=== PATIENT | male | born 1950 | race African-American/Black ===

== ENCOUNTER 2022-10-27 08:05 | Inpatient (IN) | payer MEDICARE, MEDICAID ==
[~2022-10-27] VITALS: Ht 175.3 cm; Wt 93.6 kg
[~2022-10-27 08:05] MED LIST: APIX2.5T PO; DORZ10DR32 EACHEYE; ERGO1250; FOLI-43 MT; LATA5DRO EACHEYE; MAGN400C PO; METO25TA6 PO; MULT18TA PO; MYCO180T PO; NEPVIT PO; ONDA4TAB50 PO; PRED5TAB PO; SPIR25TA6 MT; TACR0.5C PO; THIA50TA12 PO
[2022-10-27 09:23] LABS: BASOPHILS % 0.4 % (0.0-2.0); EOSINOPHILS % 2.4 % (0.0-5.0); HEMATOCRIT. 41.2 % (42.0-52.0); HEMOGLOBIN. 13.6 g/dL (14.0-18.0); LYMPHOCYTES % 20.1 % (20.0-50.0); MEAN CORPUSCULAR VOLUME 97.1 fL (80.0-94.0); MEAN PLATELET VOLUME 11.4 fl (7.4-10.4); MONOCYTES % 10.4 % (2.0-8.0); NEUTROPHILS % 66.7 % (40.0-76.0); PLATELET 120 x1000/uL (130-400); RED BLOOD CELL COUNT 4.25 mill/uL (4.7-6.1); RED CELL DISTRIBUTION WIDTH 16.6 % (11.6-14.6)
[2022-10-27 09:42] LABS: CHLORIDE 119 mEq/L (98-107)
[2022-10-27] MEDS ORDERED: SODIUM CHLORIDE 0.45% 1,000 ML IV ONE (10:15)
[2022-10-27] MEDS ORDERED: ACETAMINOPHEN 325MG TABLET PO PRN ×2 (10:30)
[2022-10-27] MEDS ORDERED: MAGNESIUM/ALUMINUM HYDROXIDE/SIMETHICONE 30ML UDC PO PRN (10:30)
[2022-10-27] MEDS ORDERED: CLONIDINE 0.1MG TABLET PO PRN (10:30)
[2022-10-27] MEDS ORDERED: GUAIFENESIN 200MG/10ML SUGAR FREE UDC PO PRN (10:30)
[2022-10-27] MEDS ORDERED: HYDROCODONE/ACETAMINOPHEN 5/325MG TABLET PO PRN (10:30)
[2022-10-27] MEDS ORDERED: ENOXAPARIN 40MG/0.4ML SYR SUBCUT SCH (10:30)
[2022-10-27] MEDS: SODIUM CHLORIDE 0.45% 1,000 ML IV SCH ×2 (10:30→21:29)
[2022-10-27] MEDS ORDERED: ONDANSETRON HCL 4MG/2ML INJ IV PRN (10:30)
[2022-10-27] MEDS ORDERED: COLL30OI TP (10:44)
[2022-10-27] MEDS ORDERED: TACR1CAP PO (10:44)
[2022-10-27] MEDS ORDERED: METO100T16 PO (10:44)
[2022-10-27] MEDS ORDERED: TIMO15DR11 EACHEYE (10:44)
[2022-10-27] MEDS ORDERED: APIXABAN 2.5 MG TABLET PO SCH (11:00)
[2022-10-27 11:36] LABS: CLARITY URINE CLOUDY (CLEAR); COLOR URINE YELLOW (YELLOW); KETONES URINE NEGATIVE (NEGATIVE); LEUKOCYTE ESTERASE URINE 3+ (NEGATIVE); NITRITE URINE NEGATIVE (NEGATIVE); OCCULT BLOOD URINE TRACE (NEGATIVE); PH URINE 6.5 (4.5-8.0); PROTEIN URINE 1+ (NEGATIVE)
[2022-10-27] MEDS ORDERED: CEFTRIAXONE 1GM PREMIX 50 ML IV NR (11:45)
[2022-10-27 11:48] LABS: FOLIC ACID (FOLATE) SERUM >20 ng/mL ng/mL (>5.38); VITAMIN B12 SERUM 968 pg/mL (211-911)
[2022-10-27] MEDS: HYDRALAZINE 20MG/ML VIAL IV SCH ×2 (13:20→17:12)
[2022-10-27 13:36] LABS: PROSTRATE SPECIFIC AG TOTAL 0.16 ng/mL (0.0-4.0)
[2022-10-27 15:00] VITALS: BP 148/60
[2022-10-27 16:00] VITALS: BP 148/60
[2022-10-27] MEDS: MYCOPHENOLATE SODIUM 180 MG TABLET.DR PO SCH (17:11)
[2022-10-27] MEDS: PREDNISONE 5MG TABLET PO SCH (17:11)
[2022-10-27] MEDS: TACROLIMUS 1MG CAPSULE PO SCH (17:12)
[2022-10-27] MEDS: METOPROLOL TARTRATE 50MG TABLET PO SCH (17:12)
[2022-10-27 20:00] VITALS: BP 160/84
[2022-10-27] MEDS ORDERED: METOPROLOL TARTRATE 50MG TABLET PO SCH (21:00)
[2022-10-27] MEDS: FAMOTIDINE 20MG TABLET PO SCH (21:29)
[2022-10-27] MEDS ORDERED: MULT-622 MT (22:40)
[2022-10-27] MEDS ORDERED: TIMO5DRO17 EACHEYE (22:40)
[2022-10-27] MEDS ORDERED: AMIN30LI2 PO (22:40)
[2022-10-27] MEDS ORDERED: CLON0.1T PO (22:40)
[2022-10-28] MEDS: HYDRALAZINE 20MG/ML VIAL IV SCH ×2 (00:16→05:56)
[2022-10-28] MEDS: METOPROLOL TARTRATE 50MG TABLET PO SCH ×2 (00:16→08:59)
[2022-10-28 00:29] VITALS: BP 157/100
[2022-10-28 04:00] VITALS: BP 152/106
[2022-10-28 07:01] LABS: BASOPHILS % 0.3 % (0.0-2.0); EOSINOPHILS % 1.2 % (0.0-5.0); HEMATOCRIT. 38.2 % (42.0-52.0); HEMOGLOBIN. 12.5 g/dL (14.0-18.0); LYMPHOCYTES % 23.4 % (20.0-50.0); MEAN CORPUSCULAR HEMOGLOBIN 32.3 pg (28.0-32.0); MEAN PLATELET VOLUME 11.5 fl (7.4-10.4); MONOCYTES % 13.6 % (2.0-8.0); NEUTROPHILS % 61.5 % (40.0-76.0); PLATELET 121 x1000/uL (130-400); RED BLOOD CELL COUNT 3.86 mill/uL (4.7-6.1); RED CELL DISTRIBUTION WIDTH 16.6 % (11.6-14.6)
[2022-10-28 07:04] LABS: CHLORIDE 117 mEq/L (98-107)
[2022-10-28 08:00] VITALS: BP 178/91
[2022-10-28] MEDS: MYCOPHENOLATE SODIUM 180 MG TABLET.DR PO SCH ×2 (08:57→16:33)
[2022-10-28] MEDS: FOLIC ACID/VITAMIN B COMP W-C TABLET PO SCH (08:58)
[2022-10-28] MEDS: APIXABAN 2.5 MG TABLET PO SCH ×2 (08:58→16:33)
[2022-10-28] MEDS: TACROLIMUS 1MG CAPSULE PO SCH ×2 (08:58→16:35)
[2022-10-28] MEDS: TIMOLOL MALEATE 0.25% OPHTH DROPS 5ML EACHEYE SCH (08:59)
[2022-10-28] MEDS ORDERED: SPIRONOLACTONE 25MG TABLET PO SCH (09:00)
[2022-10-28] MEDS: PREDNISONE 5MG TABLET PO SCH (09:00)
[2022-10-28] MEDS ORDERED: METOPROLOL TARTRATE 50MG TABLET PO NR (11:16)
[2022-10-28 12:00] VITALS: BP 150/98
[2022-10-28] MEDS: CEFTRIAXONE 1,000 MG in DEXTROSE 5% WATER 50 ML IV SCH (12:03)
[2022-10-28 13:52] LABS: HEPATITIS B SURFACE ANTIGEN NEGATIVE
[2022-10-28 16:00] VITALS: BP 135/97
[2022-10-28] MEDS: SODIUM CHLORIDE 0.45% 1,000 ML IV SCH (16:32)
[2022-10-28] MEDS: CLONIDINE 0.1MG TABLET PO PRN (16:33)
[2022-10-28] MEDS ORDERED: NALOXONE HCL 0.4MG/ML VIAL IV PRN (18:45)
[2022-10-28 20:00] VITALS: BP 166/102
[2022-10-28] MEDS: FAMOTIDINE 20MG TABLET PO SCH (20:46)
[2022-10-28] MEDS: METOPROLOL TARTRATE 100MG TABLET PO SCH (20:46)
[2022-10-29] VITALS: BP 159/81
[2022-10-29 04:00] VITALS: BP 188/98
[2022-10-29] MEDS: CLONIDINE 0.1MG TABLET PO PRN (05:10)
[2022-10-29 06:54] LABS: BASOPHILS % 0.5 % (0.0-2.0); EOSINOPHILS % 2.9 % (0.0-5.0); HEMATOCRIT. 30.5 % (42.0-52.0); HEMOGLOBIN. 10.1 g/dL (14.0-18.0); LYMPHOCYTES % 26.6 % (20.0-50.0); MEAN CORPUSCULAR HEMOGLOBIN 32.1 pg (28.0-32.0); MEAN CORPUSCULAR VOLUME 96.8 fL (80.0-94.0); MEAN PLATELET VOLUME 12.7 fl (7.4-10.4); MONOCYTES % 13.9 % (2.0-8.0); NEUTROPHILS % 56.1 % (40.0-76.0); PLATELET 103 x1000/uL (130-400); RED BLOOD CELL COUNT 3.15 mill/uL (4.7-6.1); RED CELL DISTRIBUTION WIDTH 16.3 % (11.6-14.6)
[2022-10-29 07:20] LABS: CHLORIDE 111 mEq/L (98-107)
[2022-10-29 08:00] VITALS: BP 161/103
[2022-10-29] MEDS: MYCOPHENOLATE SODIUM 180 MG TABLET.DR PO SCH ×2 (08:44→17:21)
[2022-10-29] MEDS: TIMOLOL MALEATE 0.25% OPHTH DROPS 5ML EACHEYE SCH (08:44)
[2022-10-29] MEDS: APIXABAN 2.5 MG TABLET PO SCH ×2 (08:44→17:21)
[2022-10-29] MEDS: PREDNISONE 5MG TABLET PO SCH (08:44)
[2022-10-29] MEDS: TACROLIMUS 1MG CAPSULE PO SCH ×2 (08:45→17:21)
[2022-10-29] MEDS: FOLIC ACID/VITAMIN B COMP W-C TABLET PO SCH (08:45)
[2022-10-29] MEDS: METOPROLOL TARTRATE 100MG TABLET PO SCH ×2 (08:45→20:27)
[2022-10-29] MEDS ORDERED: POTASSIUM CHLORIDE 20MEQ/PACKET PO NR (09:45)
[2022-10-29] MEDS: CEFTRIAXONE 1,000 MG in DEXTROSE 5% WATER 50 ML IV SCH (11:07)
[2022-10-29] MEDS: AMLODIPINE 5MG TABLET PO SCH (11:10)
[2022-10-29 12:00] VITALS: BP 146/92
[2022-10-29] MEDS ORDERED: POTASSIUM CHLORIDE 20MEQ TABLET SR PO SCH (12:00)
[2022-10-29] MEDS: SODIUM CHLORIDE 0.45% 1,000 ML IV SCH (13:38)
[2022-10-29 16:00] VITALS: BP 148/95
[2022-10-29 20:00] VITALS: BP 122/78
[2022-10-29] MEDS: FAMOTIDINE 20MG TABLET PO SCH (20:27)
[2022-10-30] VITALS: BP 136/101
[2022-10-30 04:00] VITALS: BP 138/108
[2022-10-30 06:54] LABS: BASOPHILS % 0.7 % (0.0-2.0); EOSINOPHILS % 3.7 % (0.0-5.0); HEMATOCRIT. 36.9 % (42.0-52.0); HEMOGLOBIN. 12.2 g/dL (14.0-18.0); LYMPHOCYTES % 29.4 % (20.0-50.0); MEAN CORPUSCULAR HEMOGLOBIN 32.1 pg (28.0-32.0); MEAN CORPUSCULAR VOLUME 97.1 fL (80.0-94.0); MEAN PLATELET VOLUME 11.8 fl (7.4-10.4); NEUTROPHILS % 52.2 % (40.0-76.0); PLATELET 129 x1000/uL (130-400); RED BLOOD CELL COUNT 3.79 mill/uL (4.7-6.1); RED CELL DISTRIBUTION WIDTH 16.3 % (11.6-14.6)
[2022-10-30 07:13] LABS: CHLORIDE 114 mEq/L (98-107)
[2022-10-30 08:00] VITALS: BP 168/105
[2022-10-30] MEDS: AMLODIPINE 5MG TABLET PO SCH (08:44)
[2022-10-30] MEDS: APIXABAN 2.5 MG TABLET PO SCH ×2 (08:44→16:34)
[2022-10-30] MEDS: FOLIC ACID/VITAMIN B COMP W-C TABLET PO SCH (08:44)
[2022-10-30] MEDS: PREDNISONE 5MG TABLET PO SCH (08:44)
[2022-10-30] MEDS: TACROLIMUS 1MG CAPSULE PO SCH ×2 (08:44→16:34)
[2022-10-30] MEDS: METOPROLOL TARTRATE 100MG TABLET PO SCH ×2 (08:44→20:54)
[2022-10-30] MEDS: MYCOPHENOLATE SODIUM 180 MG TABLET.DR PO SCH ×2 (08:44→16:34)
[2022-10-30] MEDS: TIMOLOL MALEATE 0.25% OPHTH DROPS 5ML EACHEYE SCH (08:45)
[2022-10-30] MEDS: SODIUM CHLORIDE 0.45% 1,000 ML IV SCH (08:45)
[2022-10-30] MEDS ORDERED: NITROFURANTOIN 100MG M/M CAPSULE PO SCH (09:00)
[2022-10-30] MEDS ORDERED: NITROFURANTOIN MACROCRYSTAL 50MG CAPSULE PO SCH (09:00)
[2022-10-30] MEDS ORDERED: AMLODIPINE 5MG TABLET PO NR (09:15)
[2022-10-30 12:00] VITALS: BP 165/111
[2022-10-30] MEDS: CLONIDINE 0.1MG TABLET PO PRN (12:17)
[2022-10-30 16:00] VITALS: BP 149/93
[2022-10-30] MEDS: MEGESTROL ACETATE 400 MG/10 ML UDC PO SCH (16:34)
[2022-10-30] MEDS: AMPICILLIN 1,000 MG in SODIUM CHLORIDE 0.9% 50 ML IV SCH ×2 (17:34→22:03)
[2022-10-30 20:38] VITALS: BP 144/99
[2022-10-30] MEDS: FAMOTIDINE 20MG TABLET PO SCH (20:54)
[2022-10-31] VITALS: BP 140/99
[2022-10-31 04:00] VITALS: BP 137/105
[2022-10-31] MEDS: AMPICILLIN 1,000 MG in SODIUM CHLORIDE 0.9% 50 ML IV SCH ×3 (04:55→16:12)
[2022-10-31] MEDS: CLONIDINE 0.1MG TABLET PO PRN (04:55)
[2022-10-31] MEDS: SODIUM CHLORIDE 0.45% 1,000 ML IV SCH (04:55)
[2022-10-31 05:32] LABS: BASOPHILS % 0.5 % (0.0-2.0); EOSINOPHILS % 1.9 % (0.0-5.0); HEMATOCRIT. 38.2 % (42.0-52.0); LYMPHOCYTES % 25.9 % (20.0-50.0); MEAN CORPUSCULAR HEMOGLOBIN 32.4 pg (28.0-32.0); MEAN PLATELET VOLUME 11.9 fl (7.4-10.4); MONOCYTES % 13.3 % (2.0-8.0); NEUTROPHILS % 58.4 % (40.0-76.0); PLATELET 138 x1000/uL (130-400); RED BLOOD CELL COUNT 4.02 mill/uL (4.7-6.1); RED CELL DISTRIBUTION WIDTH 15.8 % (11.6-14.6)
[2022-10-31 06:26] LABS: CHLORIDE 111 mEq/L (98-107)
[2022-10-31 08:00] VITALS: BP 156/110
[2022-10-31] MEDS: TIMOLOL MALEATE 0.25% OPHTH DROPS 5ML EACHEYE SCH (08:35)
[2022-10-31] MEDS: MEGESTROL ACETATE 400 MG/10 ML UDC PO SCH (08:35)
[2022-10-31] MEDS: APIXABAN 2.5 MG TABLET PO SCH ×2 (08:36→16:13)
[2022-10-31] MEDS: METOPROLOL TARTRATE 100MG TABLET PO SCH (08:36)
[2022-10-31] MEDS: FOLIC ACID/VITAMIN B COMP W-C TABLET PO SCH (08:36)
[2022-10-31] MEDS: PREDNISONE 5MG TABLET PO SCH (08:36)
[2022-10-31] MEDS: TACROLIMUS 1MG CAPSULE PO SCH ×2 (08:37→16:13)
[2022-10-31] MEDS ORDERED: AMLODIPINE 10MG TABLET PO SCH (09:00)
[2022-10-31] MEDS ORDERED: AMLO10TA80 PO (10:02)
[2022-10-31] MEDS ORDERED: MEGE400O4 PO (10:02)
[2022-10-31] MEDS ORDERED: AMOX-494 MT (10:02)
[2022-10-31 12:00] VITALS: BP 124/99
[2022-10-31 12:45] VITALS: BP 141/95
[2022-10-31 16:00] VITALS: BP 130/96
== END 2022-10-31 17:00 | DRG 698 ==
LOC: ER 08:05 → 7WST 11:06 → EDBEDREQ 11:08 → EDBEDREQTM 11:08
PROVIDERS: ADMIT Internal Medicine; ATTEND Internal Medicine
DX: T86.19 Other complication of kidney transplant (principal); G92.8 Other toxic encephalopathy; J96.01 Acute respiratory failure with hypoxia; N18.6 End stage renal disease; E87.0 Hyperosmolality and hypernatremia; I48.92 Unspecified atrial flutter; I50.32 Chronic diastolic (congestive) heart failure; J98.11 Atelectasis; E44.1 Mild protein-calorie malnutrition; I48.21 Permanent atrial fibrillation; N17.9 Acute kidney failure, unspecified; I13.2 Hypertensive heart and chronic kidney disease with heart failure and with stage 5 chronic kidney disease, or end stage renal disease; Z94.0 Kidney transplant status; E86.0 Dehydration; B95.2 Enterococcus as the cause of diseases classified elsewhere; Y83.0 Surgical operation with transplant of whole organ as the cause of abnormal reaction of the patient, or of later complication, without mention of misadventure at the time of the procedure; F03.90 Unspecified dementia, unspecified severity, without behavioral disturbance, psychotic disturbance, mood disturbance, and anxiety; Z66 Do not resuscitate; I49.3 Ventricular premature depolarization; N30.90 Cystitis, unspecified without hematuria; R16.0 Hepatomegaly, not elsewhere classified; Z86.73 Personal history of transient ischemic attack (TIA), and cerebral infarction without residual deficits; Z95.0 Presence of cardiac pacemaker; Z79.899 Other long term (current) drug therapy; Z79.1 Long term (current) use of non-steroidal anti-inflammatories (NSAID); Z79.01 Long term (current) use of anticoagulants; Z68.30 Body mass index [BMI] 30.0-30.9, adult; Z99.2 Dependence on renal dialysis; Y92.89 Other specified places as the place of occurrence of the external cause
CPT/HCPCS: 36415; 71045; 76700; 80048; 80053; 80061; 80197; 81003; 82607; 82746; 82962; 83605; 83880; 84145; 84153; 84443; 84484; 85025; 85379; 86705; 86709; 86803; 87186; 87340; 92610; 93005; 93306; 93970; 97162; 99285; J0290; J0360; J0696; J1650; J7060; J7507; J7512; J7517; A4315; G0103